=== PATIENT | female | born 1995 | race Caucasian/White ===

== ENCOUNTER 2017-09-13 23:28 | Emergency (ER) | payer MEDICAID ==
--- NOTE | 2017-09-14 06:20 | ED Physician Chart ---
ED Chief Complaint/HPI - Patient Information Date Seen:: 09/13/17 Time Seen:: 23:30 Chief Complaint:: altered level of consciousness History of Present Illness:: Patient's mother found the patient nonresponsive at home. Patient admits to drinking alcohol and sniffing crystal meth which she states she is not supposed to be doing. Patient's pupils were about 2 mm at the scene according to the senior business analyst. Patient was given Narcan in the field. Accu-Chek in the field was 125. Allergies:: Allergies Allergy/AdvReac Type Severity Reaction Status Date / Time No Known Allergies Allergy Verified 09/14/17 00:13 Vitals:: Vital Signs - 8 hr 09/14/17 09/14/17 00:04 05:56 Temp 97.8 F 98.3 F HR 71 70 RR 16 16 BP 99/70 96/57 O2 Sat % 95 98 Historian:: Patient, Other (senior business analyst) Review:: Nurse's Note Reviewed ED Review of Systems - Review of Systems General/Constitutional: No fever, No chills Skin: No skin lesions Head: No headache Eyes: No loss of vision ENT: No earache Neck: No neck pain Cardio Vascular: No chest pain, No palpitations Pulmonary: No SOB GI: No nausea, No vomiting, No diarrhea G/U: No dysuria Musculoskeletal: No bone or joint pain Endocrine: No polyuria Psychiatric: No prior psych history Hematopoietic: No bruising Allergic/Immuno: No urticaria Neurological: Weakness, Confusion ED Past Medical History - Past Medical History Past Medical History: Asthma/COPD Family History: Diabetes Melitus Social History: Non Smoker, Alcohol Surgical History: None Psychiatricy History: None Medication: Reviewed Family Medical History - Family Member Mother History Unknown: Yes ED Physical Exam - Physical Examination General/Constitutional: Well-developed, well-nourished Other Gen/Cons comments:: Patient became alert soon after 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: Atraumatic Eyes: Lids, conjuctiva normal, PERRL Other Eyes comments:: Pupils about 2 mm in diameter Skin: Nl inspection, No rash ENMT: External ears, nose nl Neck: No nuchal rigidity Respiratory: Nl effort/Exclusion, Clear to Auscultation Cardio Vascular: RRR, No murmur, gallop, rubs, NL S1 S2 GI: No tenderness/rebounding/guarding : No CVA tenderness Extremities: Normal digits & nails Neuro/Psych: No focal deficits Misc: No paraspinal tenderness ED Labs/Radiology/EKG Results - Lab Results Results: Blood alcohol level to 10 ED Assessment - Assessment General Assessment: At 0615 patient normally alert and normally ambulatory ED Septic Shock - . Is Septic Shock (SBP<90, OR Lactate>4 mmol\L) present?: No - <6hrs of presentation: Vital Signs: Vital Signs - 8 hr 09/14/17 09/14/17 00:04 05:56 Temp 97.8 F 98.3 F HR 71 70 RR 16 16 BP 99/70 96/57 O2 Sat % 95 98 ED Reassessment (Disposition) - Reassessment Reassessment Condition:: Improved - Diagnosis Diagnosis:: Acute alcohol intoxication - Aftercare/Follow up Instructions Aftercare/Follow-Up Instructions:: Refer to Discharge Instructions - Patient Disposition Discharge/Transfer:: Home Condition at Disposition:: Stable, Improved ED Discharge Plan - Patient Disposition Instructions: Alcohol Intoxication, [id number] Additional Instructions: MAKE A FOLLOW UP WITH PRIMARY MEDICAL DOCTOR WITHIN 1 TO 2 DAYS. DO NOT DRINK ALCOHOLS / LIQOURS. GO BACK TO EMERGENCY ROOM IF SYMPTOMS WORSEN.
--- NOTE | 2017-09-14 06:26 | ED Physician Chart ---
ED Chief Complaint/HPI - Patient Information Allergies:: Allergies Allergy/AdvReac Type Severity Reaction Status Date / Time No Known Allergies Allergy Verified 09/14/17 00:13 Vitals:: Vital Signs - 8 hr 09/14/17 09/14/17 00:04 05:56 Temp 97.8 F 98.3 F HR 71 70 RR 16 16 BP 99/70 96/57 O2 Sat % 95 98 Family Medical History - Family Member Mother History Unknown: Yes ED Septic Shock - . Is Septic Shock (SBP<90, OR Lactate>4 mmol\L) present?: No - <6hrs of presentation: Vital Signs: Vital Signs - 8 hr 09/14/17 09/14/17 00:04 05:56 Temp 97.8 F 98.3 F HR 71 70 RR 16 16 BP 99/70 96/57 O2 Sat % 95 98 ED Discharge Plan - Patient Disposition Instructions: Alcohol Intoxication, [id number] Additional Instructions: MAKE A FOLLOW UP WITH PRIMARY MEDICAL DOCTOR WITHIN 1 TO 2 DAYS. DO NOT DRINK ALCOHOLS / LIQOURS. GO BACK TO EMERGENCY ROOM IF SYMPTOMS WORSEN.
== END 2017-09-14 06:30 | disposition home or self-care (01) ==
LOC: ER 23:28
DX: F10.129 Alcohol abuse with intoxication, unspecified (principal); J44.9 Chronic obstructive pulmonary disease, unspecified; J45.909 Unspecified asthma, uncomplicated
CPT/HCPCS: Z7502